=== PATIENT | male | born 1995 | race Two or more races ===

== ENCOUNTER 2019-04-04 16:00 | Emergency (ER) | payer MEDICAID ==
[~2019-04-04] VITALS: Ht 170.2 cm; Wt 59.0 kg
[2019-04-04 16:31] VITALS: BP 150/88
== END 2019-04-04 17:26 | disposition home or self-care (01) ==
LOC: EDBD 16:00 → ER 16:00
DX: S01.112A Laceration without foreign body of left eyelid and periocular area, initial encounter (principal); S01.531A Puncture wound without foreign body of lip, initial encounter; V49.49XA Driver injured in collision with other motor vehicles in traffic accident, initial encounter; Y93.89 Activity, other specified; Y99.8 Other external cause status; Y92.411 Interstate highway as the place of occurrence of the external cause
CPT/HCPCS: 12011

== ENCOUNTER 2024-06-20 01:05 | Emergency (ER) | payer MEDICAID, OTHER ==
[~2024-06-20] VITALS: Ht 167.6 cm; Wt 76.6 kg
[2024-06-20 01:37] LABS: Urine Bacteria None Seen /hpf (None Seen)
[2024-06-20] MEDS: ONDANSETRON HCL 4 MG/2 ML VIAL IV ONE (01:45)
[2024-06-20] MEDS: KETOROLAC TROMETH 30 MG/ML 1ML VIAL IV ONE (01:45)
[2024-06-20 01:49] LABS: Basophils # (auto) 0.1 10 ^3/uL (0-0.2); Basophils % (auto) 0.6 % (0.0-2.0); Eosinophils # (auto) 0.1 10 ^3/uL (0-0.8); Eosinophils % (auto) 1.2 % (0.0-7.0); Hematocrit 47.4 % (41.0-53.0); Hemoglobin 16.4 g/dL (13.5-17.5); Lymphocytes # (auto) 2.9 10 ^3/uL (0.4-5.4); Lymphocytes % (auto) 34.4 % (10.0-50.0); Mean Corpuscular Hemoglobin 30.8 pg (28.0-32.0); Mean Corpuscular Hgb Conc. 34.6 g/dL (32.0-36.0); Monocytes % (auto) 12.4 % (0.0-12.0); Neutrophils # (auto) 4.3 10 ^3/uL (1.6-8.6); Neutrophils % (auto) 51.4 % (37.0-80.0); Red Blood Cells 5.32 10^6/uL (4.5-5.90); Red Cell Distribution Width 13.5 % (11.8-14.3); White Blood Cell 8.4 10^3/uL (4.4-10.8)
[2024-06-20 01:49] LABS: Urine Blood TRACE /uL (Negative); Urine Clarity Clear (Clear); Urine Color Light-Yellow (Yellow); Urine Mucus FEW (None Seen); Urine Protein, UAD Negative (Negative); Urine Specific Gravity 1.015 (1.001-1.035); Urine Urobilinogen Normal (Negative); Urine WBC <1 /hpf (0 - 3)
[2024-06-20] MEDS: IOHEXOL 300 MG/ML 100ML BOTTLE IJ ONE (01:54)
[2024-06-20 02:12] LABS: Alanine Aminotransferase 20 U/L (7-40); Albumin 4.4 g/dL (3.2-4.8); Alkaline Phosphatase 70 U/L (46-116); Anion Gap 6 (5-15); Aspartate Aminotransferase 11 U/L (13-40); BUN/Creatinine Ratio 11.5 (10.0-20.0); Bilirubin, Total 0.5 mg/dL (0.2-1.0); Blood Urea Nitrogen 12 mg/dL (9-23); Calcium 9.4 mg/dL (8.7-10.4); Carbon Dioxide 26 mmol/L (20-30); Chloride 106 mmol/L (98-107); Glucose 97 mg/dL (74-106); Lipase 28 U/L (12-53); Potassium 3.3 mmol/L (3.5-5.1); Sodium 138 mmol/L (136-145); Total Protein 7.1 g/dL (5.7-8.2)
[2024-06-20] MEDS: SODIUM CHLORIDE 0.9% 1,000 ML IV ONE (02:35)
[2024-06-20] MEDS: PANTOPRAZOLE 40 MG/10 ML VIAL INJ IV ONE (02:38)
[2024-06-20 03:35] VITALS: BP 117/76; TEMP 97.9
[2024-06-20 03:45] VITALS: PULSE 57; RESP 20; O2SAT 98
== END 2024-06-20 03:47 | disposition home or self-care (01) ==
LOC: ER 01:05
DX: A08.4 Viral intestinal infection, unspecified (principal); R10.84 Generalized abdominal pain; R11.2 Nausea with vomiting, unspecified
CPT/HCPCS: 36415; 74177; 80053; 81001; 83690; 85025; 96361; 96374; 99285; J2470; J7030; Q9967